=== PATIENT | male | born 1940 | race Caucasian/White ===

== ENCOUNTER 2017-10-11 16:14 | Observation (INO) | payer MEDICARE ==
--- NOTE | 2017-10-11 16:42 | ED ---
HPI Chest Pain - HPI Summary HPI Summary: A 77 y/o male accompanied by his daughter JAX presents to ED c/o chest pain reaching 7/10 in severity. In the ED room, the patient has a blood pressure of 118/72. As per triage, "Pt arrives via EMS for sharp bilateral chest pain since this morning. Pt states he thought it was indigestion but it hasn't gone away after TUMS. Pt states he has had some lightheadedness today, denies nausea, diaphoresis, SOB. Pt also had an episode of unresponsiveness per EMS where for a few seconds he did not respond to sternal rub or blink from facial movement. Pt looking off to right with eyes slightly rolled back and arms stretched out. Pt then suddenly became responsive and A & Ox4, showing no post-ictal signs". As per EMS, the patient has experiencing 9/10 CP. He thought it was originally ingestion so he took TUMS and moved on with his day by working on the deck. EMS was called by daughter and en route the patient had a episode where he stiffened up and his head/eyes turned right for about 30 seconds with unresponsiveness. After that episode, he relaxed and acted as if everything was normal. Negative NIH stroke scale. No Hx of seizures, cardiac issues, however he was in A-fib. According to the patient, he is experiencing chest pain that is radiating diffusely across his chest. He stated that he thought it was ingestion, however it never went away. PMHx of Cirrhosis (due to 60 years of heavy drinking), endoscope, esophageal balloon (had swallowing issue), LBBB, denies GA, CVA, seizure. Denies any stress test done for heart. He did see a deputy administrator a long time ago, but nothing was done. Takes several medications, on no blood thinners. Pt lives in [place], he is currently visiting. SHx of not heavy drinker, had one yesterday, no smoking. Had a TIPS procedure. - History of Current Complaint Chief Complaint: EDChestPainROMI Time Seen by Provider: 10/11/17 16:22 Hx Obtained From: Patient Onset/Duration: Started Hours Ago, Still Present Timing: Constant, Lasting Hours Initial Severity: Moderate Current Severity: Moderate Pain Intensity: 7 Pain Scale Used: 0-10 Numeric Chest Pain Location: Diffuse Chest Pain Radiates: No Aggravating Factor(s): Nothing Alleviating Factor(s): Nothing Associated Signs and Symptoms: Positive: Chest Pain. Negative: Fever - Allergy/Home Medications Allergies/Adverse Reactions: Allergies Allergy/AdvReac Type Severity Reaction Status Date / Time No Known Allergies Allergy Verified 10/11/17 16:32 Home Medications: Home Medications Aspirin EC TAB* [Ecotrin EC Low Dose 81 MG*] 81 mg PO DAILY 10/11/17 [History Confirmed 10/11/17] Furosemide TAB* [Lasix TAB*] 40 mg PO DAILY 10/11/17 [History Confirmed 10/11/17 ] Pantoprazole TAB (NF) [Protonix TAB (NF)] 40 mg PO DAILY 10/11/17 [History Confirmed 10/11/17] RiFAXimin* [Xifaxan*] 550 mg PO BID 10/11/17 [History Confirmed 10/11/17] Spironolactone TAB* [Aldactone TAB*] 100 mg PO DAILY 10/11/17 [History Confirmed 10/11/17] PMH/Surg Hx/FS Hx/Imm Hx Endocrine/Hematology History: Denies: Hx Diabetes Cardiovascular History: Reports: Other Cardiovascular Problems/Disorders - LBBB Denies: Hx Hypertension - Surgical History Surgery Procedure, Year, and Place: Endoscopy Infectious Disease History: No Infectious Disease History: Denies: Traveled Outside the [place] in Last 30 Days - Family History Known Family History: Positive: Cardiac Disease, Other - Angina - Social History Alcohol Use: Occasionally Alcohol Amount: hx etoh daily Substance Use Type: Reports: None Smoking Status (MU): Never Smoked Tobacco Review of Systems Negative: Fever Positive: Chest Pain All Other Systems Reviewed And Are Negative: Yes Physical Exam - Summary Physical Exam Summary: Appearance: Well appearing, no pain distress Skin: warm, dry, reflects adequate perfusion Head/face: normal Eyes: EOMI, YONG ENT: normal Neck: supple, non-tender Respiratory: CTA, breath sounds present Cardiovascular: RRR, pulses symmetrical Abdomen: non-tender, soft Bowel: present Musculoskeletal: normal, strength/ROM intact Neuro: normal, sensory motor intact, A&Ox3 GCS: 15 Triage Information Reviewed: Yes Vital Signs On Initial Exam: Initial Vitals Temp Pulse Resp BP Pulse Ox 98.3 F 65 16 118/72 98 10/11/17 16:21 10/11/17 16:21 10/11/17 16:21 10/11/17 16:21 10/11/17 16:21 Vital Signs Reviewed: Yes Diagnostics - Vital Signs Vital Signs Temp Pulse Resp BP Pulse Ox 10/11/17 16:34 84 21 136/71 98 10/11/17 16:32 6 10/11/17 16:25 80 118/72 99 10/11/17 16:21 98.3 F 65 16 118/72 98 - Laboratory Result Diagrams: 10/11/17 16:41 10/11/17 16:41 Lab Statement: Any lab studies that have been ordered have been reviewed, and results considered in the medical decision making process. - Radiology CXR Radiology Interpretation Completed By: Radiologist - Mild LEFT basilar atelectasis. ED PHYSICIAN REVIEWED THIS RADIOLOGY REPORT. - CT BRAIN CT CT Interpretation Completed By: Radiologist - No acute intracranial process evident. Involutional change and stigmata of chronic small vessel ischemic disease. ED PHYSICIAN REVIEWED THIS RADIOLOGY REPORT. - EKG 1630 Cardiac Rate: Tachycardia - 100 BPM EKG Rhythm: Atrial Fibrillation EKG Interpretation: LBBB Re-Evaluation - Re-Evaluation First Eval Re-Evaluation Time: 18:23 Comment: Reviewed results and labs with patient. Patient was advised that he will be admitted for observation and further treatment. Chest Pain Course/Dx - Course Course Of Treatment: A 77 y/o male accompanied by his daughter JAX presents to ED c/o chest pain reaching 7/10 in severity. In the ED room, the patient has a blood pressure of 118/72. A CXR revealed mild left basilar atelectasis. A Brain CT revealed no acute intracranial process evident. Involutional change and stigmata of chronic small vessel ischemic disease. An EKG revealed LBBB, atrial fibrillation and a rate of 100 BPM. In the ED course, the patient received Motrin and Tylenol. Patient care was discussed with hospitalist, Dr. Velazco, who accepts patient for admission. Patient will be admitted with a diagnosis of rule -out GA, chest pain, TIA and cirrhosis of the liver. Patient is agreeable with this plan. - Chest Pain Differential Diagnosis/HQI/PQRI: Acute GA, ACS, Angina, Chest Wall, Lower Respiratory Infection - Diagnoses Provider Diagnoses: TIA (transient ischemic attack), Cirrhosis of liver, Chest pain, rule out acute myocardial infarction - Provider Notifications Discussed Care Of Patient With: Mey Velazco Time Discussed With Above Provider: 19:14 Instructed by Provider To: Other - Accepts patient for admission. Discharge - Sign-Out/Discharge Documenting (check all that apply): Patient Departure - ADMIT - Discharge Plan Condition: Stable Disposition: ADMITTED TO [facility] Referrals: No Primary Care Phys,NOPCP [Primary Care Provider] - - Billing Disposition and Condition Condition: STABLE Disposition: Admitted to [facility] - Attestation Statements Document Initiated by Scribe: Yes Documenting Scribe: Paramjit Freeman Provider For Whom Scribe is Documenting (Include Credential): Juan C Sandhu Scribe Attestation: Paramjit Mccormick, scribed for Juan C Mcculloughpurvi on 10/11/17 at 1941. Scribe Documentation Reviewed: Yes Provider Attestation: The documentation as recorded by the scribeParamjit accurately reflects the service I personally performed and the decisions made by Juan C martinez NIH Scale - NIH Scale Level of Consciousness: Alert/Keenly Responsive Ask Patient the Month and His/Her Age: Both Correct Ask Pt to Open/Close Eyes and Picu Nurse/Release Non-Paretic Hand: Both Correctly Best Gaze (Only Horizontal Eye Movement): Normal Visual Field Testing: No Visual Loss Facial Paresis-Pt to Smile & Close Eyes or Grimace Symmetry: Normal/Symmetrical Motor Function - Right Arm: No Drift-Holds 10 Seconds Motor Function - Left Arm: No Drift-Holds 10 Seconds Motor Function - Right Leg: No Drift-Holds 10 Seconds Motor Function - Left Leg: No Drift-Holds 10 Seconds Limb Ataxia-Must be out of Proportion to Weakness Present: Absent Sensory (Use Pinprick to Test Arms/Legs/Trunk/Face): Normal Best Language (Describe Picture, Name Items): No Aphasia Dysarthria (Read Several Words): Normal Extinction and Inattention: No Abnormality Total Score: 0
[2017-10-11 17:13] LABS: Hematocrit 39 % (42-52); Hemoglobin 13.7 g/dl (14.0-18.0); Mean Corpuscular HGB Conc 35 g/dl (31-36); Mean Corpuscular Hemoglobin 34 pg (27-31); Mean Corpuscular Volume 96 fL (80-94); Platelet Count 72 10^3/ul (150-450); Red Blood Count 4.04 10^6/ul (4.00-5.40); Red Cell Distribution Width 13 % (10.5-15); White Blood Count 4.5 10^3/ul (3.5-10.8)
[2017-10-11 17:18] LABS: INR 1.21 (0.77-1.02)
--- NOTE | 2017-10-11 17:24 | RAD ---
Indication: Chest pain. Traumatic ankle injury. Fall. Comparison: No relevant prior exams available on the [facility] PACS for comparison. Technique: Upright AP 1652 hours Report: Mild LEFT basilar subsegmental atelectasis. Negative for pleural effusion or pneumothorax. Upper normal heart size. Unremarkable central pulmonary vasculature and mediastinal contours accounting for rightward rotation. No fractures visualized. IMPRESSION: #. Mild LEFT basilar atelectasis.
[2017-10-11 17:26] LABS: EGFR Non-African American 57.6 (>60)
[2017-10-11] MEDS ORDERED: Acetaminophen TAB* 325 MG PO ONE (17:27)
--- NOTE | 2017-10-11 17:30 | RAD ---
Indication: Unresponsive episode. Comparison: No relevant prior exams available on the [facility] PACS for comparison. Technique: Noncontrast CT vertex of skull through foramen magnum. Report: Mild prominence of the cerebral sulci and cerebellar fissures reflecting atrophy. Unremarkable ventricles and basal cisterns. Negative for metz matter white matter obscuration, intra or extra-axial hemorrhage, or mass effect. Decreased density in the periventricular and subcortical white matter while non-specific is most likely due to chronic microangiopathy. No suspicious abnormality at the orbital contents. Unremarkable calvarium and skull base. Clear partially visualized paranasal sinuses and mastoid air spaces. Negative for scalp hematoma. IMPRESSION: #. No acute intracranial process evident. #. Involutional change and stigmata of chronic small vessel ischemic disease.
[2017-10-11] MEDS ORDERED: Ibuprofen TAB* 400 MG ONE (17:32)
[2017-10-11] MEDS ORDERED: Ibuprofen TAB* 400 MG PO ONE (17:33)
[2017-10-11 17:36] LABS: ABS Basophils 0 10^3/ul (0-0.2); ABS Eosinophils 0 10^3/ul (0-0.6); ABS Lymphocytes 0.1 10^3/ul (1.0-4.8); ABS Monocytes 0.4 10^3/ul (0-0.8); ABS Nucleated RBC 0 10^3/ul; Eosinophil % 0.3 % (0-6); Lymphocyte % 3.3 % (25-47); Nucleated Red Blood Cells % 0.1
[2017-10-11] MEDS ORDERED: Magnesium Sulfate 2 GM IV* 2 GM/50 ML BAG IVPB ONE (19:27)
[2017-10-11] MEDS ORDERED: NS 0.9% 1000 ML* 1,000 ML IV ONE (20:23)
[2017-10-11] MEDS ORDERED: Acetaminophen TAB* 325 MG PO PRN (20:24)
[2017-10-11] MEDS ORDERED: Ondansetron INJ* 2 MG/ML VIAL IV PRN (20:24)
[2017-10-11] MEDS ORDERED: Al Hydrox/Mg Hydrox/Simet LIQ* 30 ML UDC PO PRN (20:24)
[2017-10-11] MEDS ORDERED: Aspirin TAB* 325 MG PO ONE (20:42)
[2017-10-11] MEDS ORDERED: Iodixanol* (CONTRAST) 320 MG/ML 100 ML SDV IV ONE (20:49)
--- NOTE | 2017-10-11 21:21 | RAD ---
EXAM: CT Angiography Head With Intravenous Contrast CLINICAL HISTORY: 77 years old, male; Signs and symptoms; Syncope and collapse TECHNIQUE: Axial computed tomographic angiography images of the head with intravenous contrast using CT angiography protocol. All CT scans at this facility use at least one of these dose optimization techniques: automated exposure control; mA and/or kV adjustment per patient size (includes targeted exams where dose is matched to clinical indication); or iterative reconstruction. 3D and MIP reconstructed images were created and reviewed. Coronal and sagittal reformatted images were created and reviewed. CONTRAST: 80 mL of VISIPAQUE 320 administered intravenously. COMPARISON: No relevant prior studies available. FINDINGS: Right internal carotid artery: Calcification involving the right carotid siphon without significant stenosis. No aneurysm. Right anterior cerebral artery: Unremarkable. No occlusion or significant stenosis. No aneurysm. Right middle cerebral artery: Unremarkable. No occlusion or significant stenosis. No aneurysm. Right posterior cerebral artery: Unremarkable. No occlusion or significant stenosis. No aneurysm. Right vertebral artery: Mild calcification involving the right vertebral artery without definite significant stenosis. Left internal carotid artery: Calcification involving the left carotid siphon without significant stenosis. No aneurysm. Left anterior cerebral artery: Unremarkable. No occlusion or significant stenosis. No aneurysm. Left middle cerebral artery: Unremarkable. No occlusion or significant stenosis. No aneurysm. Left posterior cerebral artery: Unremarkable. No occlusion or significant stenosis. No aneurysm. Left vertebral artery: Left vertebral artery is dominant. Mild calcification involving the left vertebral artery without definite significant stenosis. Basilar artery: Unremarkable. No occlusion or significant stenosis. No aneurysm. IMPRESSION: No hemodynamically significant stenosis or large vessel occlusion. EXAM: CT Angiography Neck With Intravenous Contrast EXAM DATE/TIME: 10/11/2017 8:51 PM CLINICAL HISTORY: 77 years old, male; Signs and symptoms; Syncope and collapse TECHNIQUE: Axial computed tomographic angiography images of the neck with intravenous contrast using CT angiography protocol. All CT scans at this facility use at least one of these dose optimization techniques: automated exposure control; mA and/or kV adjustment per patient size (includes targeted exams where dose is matched to clinical indication); or iterative reconstruction. 3D and MIP reconstructed images were created and reviewed. Coronal and sagittal reformatted images were created and reviewed. CONTRAST: 80 mL of VISIPAQUE 320 administered intravenously. 80 mL of VISIPAQUE 320 administered intravenously. COMPARISON: No relevant prior studies available. FINDINGS: VASCULATURE: Right common carotid artery: Unremarkable. No significant stenosis. No dissection or occlusion. Right internal carotid artery: Unremarkable. Extracranial segment is patent with no significant stenosis. No dissection or occlusion. Right external carotid artery: Unremarkable. No occlusion. Right vertebral artery: Unremarkable. No significant stenosis. No dissection or occlusion. Left common carotid artery: Unremarkable. No significant stenosis. No dissection or occlusion. Left internal carotid artery: Unremarkable. Extracranial segment is patent with no significant stenosis. No dissection or occlusion. Left external carotid artery: Unremarkable. No occlusion. Left vertebral artery: Left vertebral artery is dominant. No significant stenosis. No dissection or occlusion. NECK: Bones/joints: There are degenerative changes involving the spine. No acute fracture. No dislocation. Soft tissues: Unremarkable as visualized. No mass. CAROTID STENOSIS REFERENCE USING NASCET CRITERIA: % ICA stenosis = (1 - narrowest ICA diameter/diameter of distal cervical ICA) x 100. Mild - <50% stenosis. Moderate - 50-69% stenosis. Severe - 70-94% stenosis. Near occlusion - 95-99% stenosis. Occluded - 100% stenosis. IMPRESSION: No hemodynamically significant stenosis.
--- NOTE | 2017-10-11 21:40 | RAD ---
EXAM: MR Head Without Intravenous Contrast EXAM DATE/TIME: 10/11/2017 9:21 PM CLINICAL HISTORY: 77 years old, male; Signs and symptoms; Altered mental status/memory loss; Patient HX: Pt had an episode of unresponsiveness per ems for a few seconds earlier today. Did not respond to sternal rub or blink from facial movement. TECHNIQUE: Magnetic resonance images of the head/brain without intravenous contrast in multiple planes. COMPARISON: CTA HD/NK CTA HEAD/NECK 10/11/2017 8:48 PM FINDINGS: Ventricular and subarachnoid spaces are normal for age. Major vascular flow voids at the skull base are preserved. No extra-axial fluid collection. No midline shift or mass effect. Mild nonspecific gliosis involving the supratentorial white matter is likely secondary to chronic microvascular ischemia. No diffusion restriction. Minimal paranasal sinus disease. Trace right mastoid effusion. IMPRESSION: No acute intracranial abnormality.
[2017-10-11] MEDS: Heparin VIAL(*) 5000 UNITS/ML VIAL (FIVE THOUSAND) SUBCUT SCH (22:19)
[2017-10-11] MEDS: RiFAXimin* 550 MG TAB PO SCH (22:22)
--- NOTE | 2017-10-11 23:13 | HP ---
CC: Dr. Mays, [place], [place] HISTORY AND PHYSICAL: DATE OF ADMISSION: 10/11/17 TIME OF EVALUATION: 1999. PRIMARY CARE PHYSICIAN: Dottie Crowe [place], [place] CHIEF COMPLAINT: Chest pain. HISTORY OF PRESENT ILLNESS: This is a 77-year-old male with a past medical history of hepatic encephalopathy, GERD who presented to the emergency room with persistent chest pain. The patient states immediately upon waking up this morning, he had chest pain across his chest. He went to go to drink coffee which he normally does not drink and the chest pain never improved. He thought it was indigestion. He did not eat or drink very much today. He had a headache all day behind his eyes. No blurry vision. No shortness of breath. He finally called the EMS for further evaluation. In the EMS, the patient states he was diaphoretic, he also had a period of unresponsiveness. He states to EMS that he turned his head to the side and he had a staring episode for about 30 seconds. It did not appear that he seemed to be out of it afterward or any postictal period. No shaking or tremors. The patient is visiting from [place] for the week, staying with his daughter. She states that he always sits there, she thinks he is resting, but his eyes are open and she thought that he was sleeping, but it is possible that maybe he was having these staring spells that he did in the EMS. He also states he had a significant lightheaded episode while he was lying in the couch, he was also dizzy and very nauseated. He does get dizzy spells on occasion, but not at this significant. He denied any weakness. No shortness of breath, no recent illness. He was seeing a pretzel twister down in [place], but they said he no longer needed to follow up with them. He declined a stress test from them many years ago as he has heard people dying from having a stress test. The patient states he has been gaining weight. No lower extremity swelling. Also of note, the patient was working on his daughter's deck yesterday, was very active, and he had 3 drinks, which he normally has not been doing with his history as a reward for himself for working so hard out on the deck. Otherwise, review of systems is negative. He states that the chest pain has subsided, but now moved to his lower chest. Otherwise, the patient in the emergency room was given Motrin and referred to the hospitalist service for further evaluation. PAST MEDICAL HISTORY: 1. The patient states he does have history of left bundle-branch block. 2. History of hepatic encephalopathy with cirrhosis. 3. History of alcohol abuse. 4. GERD. 5. History of esophageal stricture, status post balloon dilatation. 6. History of TIPS procedure. 7. History of ventral and umbilical hernia repair. MEDICATIONS: 1. Aspirin 81 mg p.o. daily. 2. Spironolactone 100 mg daily. 3. Lasix 40 mg daily. 4. Rifaximin 550 mg p.o. b.i.d. 5. Pantoprazole 40 mg p.o. daily. ALLERGIES: No known drug allergies. FAMILY HISTORY: Mother is alive at age 97. Father at age 62, appears from an OR. SOCIAL HISTORY: As mentioned, the patient is from [place], [place]. He lives with his girlfriend. He is independent of his ADLs. He does occasionally smoke a cigar. He does not drink daily, but does have a history of alcohol abuse. He limits his alcohol intake. He states 3 drinks yesterday was out of the ordinary for him in the clinical situation of working hard on daughter's deck. He is currently staying with his daughter. He is original from [place]. His healthcare proxy is his daughter, Sandrita Meier. Code status, full code. REVIEW OF SYSTEMS: A 14-point review of systems as mentioned in HPI, otherwise negative. PHYSICAL EXAMINATION GENERAL: No acute distress, resting comfortably with his daughter, sister, and grandson at the bedside. VITAL SIGNS: Temp 98.3, pulse rate 68, respiratory rate 17, oxygen saturation 97 % on room air, blood pressure 120/68. HEENT: Head, normocephalic. Pupils equal and reactive, anicteric. Oropharynx : Mucous membranes are moist. NECK: Supple, no adenopathy. RESPIRATORY: Diminished breath sounds. No wheezes, rhonchi, or rales. CARDIAC: Regular rate and rhythm. Systolic murmur most prominent at the left sternal base. ABDOMEN: Positive bowel sounds. Soft, nontender, nondistended. EXTREMITIES: Trace pretibial edema, +1 DPs. NEUROLOGIC: Alert and oriented x3. No gross focal neurologic deficits. Negative pronator drift. DIAGNOSTIC STUDIES/LAB DATA: White count 4.5, hemoglobin 13.7, hematocrit 39, platelets 72. INR is 1.21. Sodium 137, potassium 4.1, chloride 106, bicarb 23 , BUN 14, creatinine 1.22, glucose 120, mag is 1.7, total bili is 1.35. Troponin is 0 x2. Radiographic Data: EKG shows atrial fibrillation with a rate of 100 with a left bundle-branch block. A chest x-ray shows mild left basilar atelectasis. Head CT: No acute intracranial process evident, involutional changes, stigmata of chronic small vessel ischemic disease. ASSESSMENT: This is a 77-year-old male with past medical history of hepatic encephalopathy, cirrhosis with a known left-bundle branch block who presents to the emergency room with chest pain who had an unresponsive episode in EMS. 1. Chest pain. Assessment: My suspicion is this is musculoskeletal in the setting of working in his daughter's deck all day yesterday. He did present with atrial fibrillation on EKG, which now appears on telemetry that he is in normal sinus. We will get another EKG to look at this. He denies any history of atrial fibrillation. He also per him refused stress test in the past. Plan : Discussed workup with troponin trend. We will obtain an echocardiogram. If there are any concerning findings from there, then he may need a stress test, but he has capacity to refuse it if he is not interested. We will continue him on an aspirin. 2. Atrial fibrillation. Assessment: The patient's presenting EKG shows atrial fibrillation per the patient. He has no known history of this. It appears that he is now in sinus rhythm. Plan: We will repeat an EKG now. We will check an echocardiogram. I suspect maybe the 3 drinks put him into atrial fibrillation. He may be in paroxysmal atrial fibrillation with his drinking history. No indication for anticoagulation at this time. His mag was also low. We will replete that. 3. Unresponsive episode. Assessment: The patient with this unresponsive episode in EMS and possibly several more episodes at home while he was supposedly having his brief nap with his eyes open. It is possible this was a seizure-like episode or transient ischemic attack. He was also having dizziness and vertigo even with lying flat. Plan: We will check a CTA of the head and neck, MRI, and EEG. We will change him to a full aspirin for now. Neuro checks and seizure precautions. Consider Neurology evaluation. 4. Chronic medial problems: History of hepatic encephalopathy and cirrhosis. We will resume his spironolactone, Lasix, and rifaximin in the morning. 5. History of esophageal stricture: Continue his Protonix in the morning as well. 6. FEN: Place the patient on a heart-healthy diet. 7. DVT prophylaxes: The patient scores moderate risk, place him on heparin subcu t.i.d. 8. Code status: Full code. PATIENT TIME: Greater than 60 minutes was spent doing the history and physical , more than half the time spent in direct patient contact. [id number]/CPS #: [id number]
[2017-10-12] MEDS ORDERED: Ketorolac INJ* 15 MG/ML 1 ML VIAL IV PUSH ONE (05:17)
[2017-10-12] MEDS ORDERED: Ketorolac INJ* 15 MG/ML 1 ML VIAL ONE (05:23)
[2017-10-12] MEDS: Heparin VIAL(*) 5000 UNITS/ML VIAL (FIVE THOUSAND) SUBCUT SCH ×3 (05:25→19:51)
[2017-10-12 05:42] LABS: ABS Basophils 0 10^3/ul (0-0.2); ABS Eosinophils 0 10^3/ul (0-0.6); ABS Lymphocytes 0.2 10^3/ul (1.0-4.8); ABS Monocytes 0.6 10^3/ul (0-0.8); ABS Neutrophils 3.6 10^3/ul (1.5-7.7); ABS Nucleated RBC 0 10^3/ul; Eosinophil % 0.9 % (0-6); Hematocrit 39 % (42-52); Hemoglobin 13.6 g/dl (14.0-18.0); Lymphocyte % 5.1 % (25-47); Mean Corpuscular HGB Conc 35 g/dl (31-36); Mean Corpuscular Hemoglobin 34 pg (27-31); Mean Corpuscular Volume 96 fL (80-94); Mean Platelet Volume 8.1 um3 (7.4-10.4); Nucleated Red Blood Cells % 0.1; Platelet Count 69 10^3/ul (150-450); Red Blood Count 4.02 10^6/ul (4.00-5.40); Red Cell Distribution Width 13 % (10.5-15); White Blood Count 4.6 10^3/ul (3.5-10.8)
[2017-10-12 05:51] LABS: EGFR Non-African American 67.7 (>60)
[2017-10-12] MEDS: Furosemide TAB* 40 MG PO SCH (08:47)
[2017-10-12] MEDS: Aspirin TAB* 325 MG PO SCH (08:48)
[2017-10-12] MEDS: Omeprazole CAP* 20 MG PO SCH (08:48)
[2017-10-12] MEDS: RiFAXimin* 550 MG TAB PO SCH ×2 (08:48→19:51)
[2017-10-12] MEDS: Spironolactone TAB* 25 MG PO SCH (08:48)
--- NOTE | 2017-10-12 08:55 | ECHO ---
Patient: SANIYA HARRIS [facility] Rec#: [id number] : 1940 Date: 10/12/2017 Age: 77y Height: 173 cm / 68.1 in Weight: 87.09 kg / 191.9 lbs Sex: M BSA: 2.01 Room#: [facility] Admit Date#: 10/11/2017 Type: Inpatient Referring: Mey Velazco Reading: Al Leos DO Shuttle Buggy Operator: Greta [facility]AL[facility]an[facility]ch[facility] Indication: Syncope, chest pain BP: 135/60 HR: 84 Rhythm: A-Fib Findings History: LBBB, systolic murmur, ETOH abuse in past, hepatic encephalopathy. Technical Comments: The study quality is fair. Completed at 0830. Left Ventricle: The left ventricular chamber size is normal. There is no left ventricular hypertrophy. There is a prominent septal knuckle. Global left ventricular wall motion and contractility are within normal limits. There is normal left ventricular systolic function. The estimated ejection fraction is greater than 65%. There is a left ventricular septal wall motion abnormality observed, possibly due to the presence of a left bundle branch block. The assessment of diastolic function is non-diagnostic. Left Atrium: The left atrium is mildly dilated. Right Ventricle: The right ventricular chamber size and systolic function are within normal limits. Right Atrium: The right atrium is mildly dilated. Aortic Valve: The aortic valve is trileaflet. The aortic valve leaflets are mildly thickened. There is evidence of aortic sclerosis without stenosis. There is mild aortic regurgitation. There is no evidence of aortic stenosis. Mitral Valve: There is mitral annular calcification. The mitral valve leaflets are mildly thickened. There is a trace of mitral regurgitation. There is no evidence of mitral stenosis. Tricuspid Valve: The tricuspid valve leaflets are normal. There is trace tricuspid regurgitation. Unable to estimate the right ventricular systolic pressure. There is no tricuspid stenosis. Pulmonic Valve: The pulmonic valve appears normal. There is a trace pulmonic regurgitation. There is no pulmonic stenosis. Pericardium: There is no significant pericardial effusion. Aorta: There is no dilatation of the ascending aorta. There is mild dilatation of the aortic arch. The aortic root is normal in size. Pulmonary Artery: The main pulmonary artery is not well visualized. Venous: The inferior vena cava is dilated. There is a greater than 50% respiratory change in the inferior vena cava dimension. Conclusions The left ventricular chamber size is normal. There is no left ventricular hypertrophy. There is a prominent septal knuckle. Global left ventricular wall motion and contractility are within normal limits. There is normal left ventricular systolic function. The estimated ejection fraction is 65-70% The left atrium is mildly dilated. The right ventricular chamber size and systolic function are within normal limits. There is evidence of aortic sclerosis without stenosis. Unable to estimate the right ventricular systolic pressure. None prior for comparison at time of interpretation Measurements Name Value Normal Range RVIDd (AP) 2D 3.1 cm (0.9 - 2.6) RAd ISD 4CH 5.2 cm (3.4 - 4.9) RA (A4C)W 4.2 cm (2.9 - 4.6) IVSd (2D) 0.9 cm (0.6 - 1) LVPWd (2D) 0.9 cm (0.6 - 1) LVIDd (2D) 3.8 cm (3.6 - 5.4) LVIDs (2D) 2.5 cm - LV FS (2D) 34 % (25 - 45) Aortic Annulus 2 cm (1.4 - 2.6) Ao root diameter (2D) 3 cm (2.1 - 3.5) Ascending Ao 3.2 cm (2.1 - 3.4) Aortic arch 3.8 cm (1.8 - 3.4) LA dimension (AP) 2D 4 cm (2.3 - 3.8) LAd ISD 4CH 6.5 cm (2.9 - 5.3) LA ISD 4CH W 4.3 cm (2.5 - 4.5) Name Value Normal Range LA ESV BP (A/L) index 30.6 ml/m2 - Name Value Normal Range MV E-wave Vmax 0.6 m/sec - MV deceleration time 151 msec - MV A-wave Vmax 0.9 m/sec - MV E:A ratio 0.7 ratio - LV septal e' Vmax 0.07 m/sec - LV lateral e' Vmax 0.08 m/sec - LV E:e' septal ratio 8.57 ratio - LV E:e' lateral ratio 7.5 ratio - Name Value Normal Range AV Vmax 2.1 m/sec - AV VTI 43 cm - AV peak gradient 17 mmHg - AV mean gradient 10 mmHg - LVOT Vmax 1.4 m/sec - LVOT VTI 28.1 cm - LVOT peak gradient 8 mmHg - LVOT mean gradient 5 mmHg - DC Vmax 1.2 m/sec - Name Value Normal Range IVC diameter 2.2 cm - Name Value Normal Range PV Vmax 1.6 m/sec - PV peak gradient 10 mmHg -
[2017-10-12] MEDS ORDERED: Aspirin EC TAB* 81 MG TAB.EC PO SCH (09:00)
[2017-10-12] MEDS ORDERED: Iodixanol* (CONTRAST) 320 MG/ML 100 ML SDV IV ONE (17:14)
--- NOTE | 2017-10-12 17:34 | PN ---
Subjective Date of Service: 10/12/17 Interval History: Pt seen and examined. Meds and labs reviewed. CC: Continuos CP ROS: Denied COBURN/dizziness, F/C, N/V, SOB, increased cough, sputum production, abd pain, diarrhea, constipation, dysuria, myalgias, arthralgias, throat pain, and new skin lesions. The rest of the 14 point ROS are unremarkable. PHYSICAL EXAM: GEN APPEARANCE: Awake, not in acute distress HEENT: NC/AT, PERRLA, moist oral mucosa, (-) throat erythema NECK: Soft, supple, (-) cervical LAD, (-)JVD HEART: S1S2 WNL, RRR, No MRG CHEST: CTA, BL, GAE, No W/R/R ABD: Soft, ND/NT, NABS 4x Q EXT: No C/C/BLLE+1 SKIN: Warm to touch PSYCH: No active psychosis, hallucinations, depression, SI/HI Objective Active Medications: Acetaminophen (Tylenol Tab*) 650 mg PO Q4H PRN PRN Reason: FEVER/PAIN Al Hydrox/Mg Hydrox/Simethicone (Maalox Plus*) 30 ml PO Q6H PRN PRN Reason: INDIGESTION Aspirin (Aspirin Tab*) 325 mg PO DAILY [facility] Last Admin: 10/12/17 08:48 Dose: 325 mg Furosemide (Lasix Tab*) 40 mg PO DAILY [facility] Last Admin: 10/12/17 08:47 Dose: 40 mg Heparin Sodium (Porcine) (Heparin Vial(*)) 5,000 units SUBCUT Q12H [facility] Omeprazole (Prilosec Cap*) 20 mg PO DAILY@0730 [facility] Last Admin: 10/12/17 08:48 Dose: 20 mg Ondansetron HCl (Zofran Inj*) 4 mg IV Q4H PRN PRN Reason: NAUSEA/VOMITING Rifaximin (Xifaxan*) 550 mg PO BID [facility] Last Admin: 10/12/17 08:48 Dose: 550 mg Spironolactone (Aldactone Tab*) 100 mg PO DAILY [facility] Last Admin: 10/12/17 08:48 Dose: 100 mg Vital Signs - 8 hr 10/12/17 10/12/17 11:55 16:24 Temperature 98.4 F 99.9 F Pulse Rate 80 86 Respiratory 16 20 Rate Blood Pressure 133/56 146/63 (mmHg) O2 Sat by Pulse 99 100 Oximetry Oxygen Devices in Use Now: None Result Diagrams: 10/12/17 05:27 10/12/17 05:27 Assess/Plan/Problems-Billing Assessment: - Patient Problems (1) Chest pain Current Visit: Yes Status: Acute Code(s): R07.9 - CHEST PAIN, UNSPECIFIED SNOMED Code(s): 04923443 Comment: -Mentions that CP is pleuritic but right below his pectoral area---will order CTA of chest to R/O; especially with an equivocal history of syncope -Troponins (-)x3 -Likely musculoskeletal if CTA is negative -2D echo does not show any wall motion abn with preserved EF 65-70% -For stress test in AM given known history of A fib with LBBB, old (2) Atrial fibrillation Current Visit: Yes Status: Acute Code(s): I48.91 - UNSPECIFIED ATRIAL FIBRILLATION SNOMED Code(s): 14332745 Comment: -Likely Paroxysmal given repeat EKG is in NSR today -Will defer with pts PCP to discuss risks and benefits given pt has multiple medical conditions and is cirrhotic. 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
[2017-10-12] MEDS ORDERED: Heparin VIAL(*) 5000 UNITS/ML VIAL (FIVE THOUSAND) SUBCUT SCH (18:00)
--- NOTE | 2017-10-12 19:19 | RAD ---
EXAM: CT Angiography Chest With Intravenous Contrast CLINICAL HISTORY: 77 years old, male; Pain; Chest pain; Additional info: Pleuritic cp TECHNIQUE: Axial computed tomographic angiography images of the chest with intravenous contrast using pulmonary embolism protocol. All CT scans at this facility use at least one of these dose optimization techniques: automated exposure control; mA and/or kV adjustment per patient size (includes targeted exams where dose is matched to clinical indication); or iterative reconstruction. MIP reconstructed images were created and reviewed. Coronal and sagittal reformatted images were created and reviewed. CONTRAST: 82 mL of VISIPAQUE 320 administered intravenously. COMPARISON: OT - CXR PORTAP CHEST AP PORTABLE 10/11/2017 4:51 PM FINDINGS: Pulmonary arteries: No visible acute pulmonary embolism. Aorta: There are atherosclerotic aortic and coronary artery calcifications. No thoracic aortic aneurysm. Lungs: Unremarkable. No mass. No consolidation. Pleural space: There is bibasilar atelectatic change or scarring but the lungs and pleural spaces appear otherwise clear. No significant effusion. No pneumothorax. Heart: See above. Bones/joints: There is diffuse osteopenia and there are degenerative changes of the spine. There is moderate thoracic kyphosis No acute fracture. No dislocation. Soft tissues: There is significant bilateral gynecomastia. Lymph nodes: Unremarkable. No enlarged lymph nodes. Spleen: There is splenomegaly. Tubes, lines and devices: A TIPS shunt is present. IMPRESSION: 1. There is bibasilar atelectatic change or scarring but the lungs and pleural spaces appear otherwise clear. 2. No visible acute pulmonary embolism.
[2017-10-12] MEDS ORDERED: oxyCODONE/Acetamin 5/325 MG* TAB PO PRN (19:30)
[2017-10-12] MEDS ORDERED: Ibuprofen TAB* 600 MG PO PRN (19:31)
--- NOTE | 2017-10-12 20:43 | EEG ---
ELECTROENCEPHALOGRAPHY: DATE OF STUDY: 10/12/17 LOCATION: He is an outpatient in room 448. REFERRING PHYSICIAN: Dr. Velazco. CLINICAL PROBLEM: Episodes of staring and unresponsiveness. Rule out seizure disorder. MEDICATIONS: Include: 1. Lasix. 2. Zofran. 3. Heparin. 4. Aldactone. 5. Xifaxan. 6. Aspirin. REPORT: This 16-channel EEG is remarkable for background rhythms consisting of a central slowing and bitemporal theta. The patient is clinically asleep. Vertex is more prominent at times and parasagittal sleep spindles are noted. There is occasional movement artifact. The patient wakes near the end of the tracing with normal background rhythms consisting of a 9 cycle per second alpha rhythm in the posterior derivations and bifrontal beta rhythms. The patient drowses again at the end of the tracing. There are no focal, lateralized, or epileptiform abnormalities. CLINICAL IMPRESSION: Normal asleep and briefly awake EEG. [id number]/[facility] #: [id number] [facility]
[2017-10-13 05:38] LABS: ABS Basophils 0 10^3/ul (0-0.2); ABS Eosinophils 0 10^3/ul (0-0.6); ABS Lymphocytes 0.3 10^3/ul (1.0-4.8); ABS Monocytes 0.9 10^3/ul (0-0.8); ABS Neutrophils 5.6 10^3/ul (1.5-7.7); ABS Nucleated RBC 0 10^3/ul; Eosinophil % 0.1 % (0-6); Hematocrit 39 % (42-52); Hemoglobin 13.7 g/dl (14.0-18.0); Lymphocyte % 3.7 % (25-47); Mean Corpuscular HGB Conc 35 g/dl (31-36); Mean Corpuscular Hemoglobin 34 pg (27-31); Mean Corpuscular Volume 97 fL (80-94); Mean Platelet Volume 8.6 um3 (7.4-10.4); Nucleated Red Blood Cells % 0; Platelet Count 66 10^3/ul (150-450); Red Blood Count 4.07 10^6/ul (4.00-5.40); Red Cell Distribution Width 13 % (10.5-15); White Blood Count 6.8 10^3/ul (3.5-10.8)
[2017-10-13 05:52] LABS: INR 1.33 (0.77-1.02)
[2017-10-13 05:58] LABS: EGFR Non-African American 64.2 (>60)
[2017-10-13] MEDS ORDERED: Sodium Phosphate INJ* 15 MMOLE in NS 0.9% 250 ML* 250 ML IVPB ONE (09:13)
[2017-10-13] MEDS: Omeprazole CAP* 20 MG PO SCH (10:40)
[2017-10-13] MEDS: RiFAXimin* 550 MG TAB PO SCH (10:40)
[2017-10-13] MEDS: Aspirin TAB* 325 MG PO SCH (10:40)
[2017-10-13] MEDS: Spironolactone TAB* 25 MG PO SCH (10:40)
[2017-10-13] MEDS: Furosemide TAB* 40 MG PO SCH (10:40)
[2017-10-13] MEDS: Heparin VIAL(*) 5000 UNITS/ML VIAL (FIVE THOUSAND) SUBCUT SCH (10:41)
--- NOTE | 2017-10-13 10:51 | RAD ---
INDICATION: Chest pain COMPARISON: None TECHNIQUE: A single day SPECT protocol was utilized. Rest images were acquired following the intravenous injection of 10.3 millicuries of technetium 99m tetrofosmin. Pharmacologic stress images were acquired following the intravenous administration of 25.8 millicuries of technetium 99m tetrofosmin. FINDINGS: There are no evidence defects of the stress-induced or fixed nature. The polar plot images demonstrate a tiny focus of ischemia in the inferior wall to apex but this is not confirmed on the tomographic images. There are minor limitations due to lack of CT attenuation correction because of limited arm mobility. The cardiac chamber size is normal. There are no wall motion abnormalities. The ejection fraction is calculated at 69 percent during stress. IMPRESSION: NO DEFINITIVE DEFECTS OF A STRESS-INDUCED OR FIXED NATURE (SEE ABOVE) ASSESSMENT: LOW-RISK Based on imaging criteria from ACC/AHA 2002 Guideline Update for the Management of Patients With Chronic Stable Angina Table 23. Noninvasive Risk Stratification.
[2017-10-13] MEDS ORDERED: Regadenoson* 0.4 MG/5 ML SYRINGE ONE (12:31)
[2017-10-13 16:24] VITALS: BP 141/53
--- NOTE | 2017-10-14 11:40 | DS ---
CC: Dr. Mey Velazco; Dr. Juan C Sandhu; Dr. Mays in [place], [place] * DISCHARGE SUMMARY: DATE OF ADMISSION: 10/11/17 DATE OF DISCHARGE: 10/13/17 DISCHARGE DIAGNOSES: As follows: 1. Chest pain, likely musculoskeletal, negative stress test and negative for PE with CTA of chest. 2. Atrial fibrillation. 3. Question of loss of consciousness, unremarkable MRI and CTA of head and neck. 4. 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 DISCHARGE MEDICATIONS: As follows: 1. Tylenol 650 mg p.o. q.6 p.r.n. 2. Lasix 40 mg p.o. daily. 3. Pantoprazole 40 mg p.o. daily. 4. Xifaxan 550 mg p.o. b.i.d. 5. Spironolactone 100 mg p.o. daily. 6. Aspirin 81 mg p.o. daily. 7. Lactulose 20 g p.o. q.6 p.r.n. only when patient is confused or when sleep wake cycle reversal is evident. 8. Oxycodone 5 mg p.o. q.8 p.r.n. 12 tabs dispensed with 0 refills. HISTORY OF PRESENT ILLNESS/HOSPITAL COURSE: The patient is a 77-year-old gentleman with history of Laennec's cirrhosis, status post TIPS procedure causing increased risk of hepatic encephalopathy, GERD, and esophageal stricture, status post balloon dilatation, who presented to our facility on 10/11/17 from [place], [place], where he currently resides and currently in town for a trip with family visiting his daughter. He mentioned that he had headache all day right behind his eyes with no blurry visions and shortness of breath and EMS was then called, who then stated that he was diaphoretic and there was a period of unresponsiveness for possibly around 30 seconds, although himself is unclear whether he was perspired and not responding to their voice or that he truly did pass out. During his hospitalization stay, he had CTA of his head and neck, which shows no hemodynamically significant stenosis or large vessel and an MRI of his brain done on 10/11/17, which showed no acute intracranial abnormality. He also complained of some pleuritic chest pain and has been ruled out for pulmonary embolism, especially given question of syncope with CT angio that was negative for any clots. Although it does reveal some bibasilar atelectatic change or scarring, but the lungs and pleural spaces appear otherwise clear. Therefore he was given a prescription for incentive spirometry prior to his discharge. He also had cardiac stress test, which was otherwise read as low risk for actionable coronary artery disease. During his evaluation, MELD score is found to be 16 and his total bilirubin was above 4, which is slightly above his normal baseline of bilirubin of 3.5 and MELD score of about 11 or 12 previously. He, therefore, was advised to follow up with his hot pond operator to see whether he can began to be evaluated for transplant listing in [place] and hence we will defer. The patient had been advised to followup and/or call his PCP within 3 days post discharge to schedule an outpatient appointment and to follow up with his hot pond operator, GI physician to recheck his MELD score. He was advised that his last calculated MELD score prior to his discharge in our institution is 16. He was advised to keep copies of his workup for his records and especially helpful if a decision for possible transplant listing is in order and hence we will defer with his GI physician. He was advised to call his PCP first if he needs more oxycodone as needed for pain. He was advised that too much opioids can further increased his risk of encephalopathy, hence he was given on an as- needed dose of lactulose he can use if it becomes more confused or sleeping more during the days and awake at night, i.e., reversal of sleep-wake pattern. He was advised that if he is having any problems and/or if his symptoms worsen to call his PCP first to see if his concerns can be addressed in a timely manner. If not or if he had been advised to go the ER for scheduling issues to discuss with his PCP whether [facility] followup is appropriate. If so, he is advised to call [facility] and/or when he is unable to touch base with his PCP and certainly during the transition prior to his flight back in [place] back in Monday if he does get unwell. He was advised to call my office regarding any questions, concerns or further clarifications regarding his discharge plans and/or prescriptions and to take his medications as prescribed. REVIEW OF SYSTEMS: The patient denied any recent headaches, dizziness, fevers, chills, nausea, vomiting, chest pain, shortness of breath, increased cough or sputum production, abdominal pain, diarrhea, constipation, pain and/or increased frequency and urination, myalgias, arthralgias, throat pain, or new skin lesions. The rest of the 14 point review of systems are otherwise unremarkable. PHYSICAL EXAMINATION: Shows the most recent vital signs of records with temperature of 98.2 degrees Fahrenheit, 83 beats per minute heart rate, 18 per minute respiratory rate, saturation at 99% on room air, blood pressure of 141/ 53. General Appearance: The patient is awake, alert, and oriented x3, not in acute distress. HEENT: Normocephalic, atraumatic. PERRLA. Extraocular muscles intact. Negative for icterus. Moist oral mucosa. Negative throat erythema. Neck is soft, supple with no cervical lymphadenopathy. No JVD. Heart: S1, S2 within normal limits. Regular rate and rhythm. No murmurs, rubs , and gallops. Chest: Clear to auscultation bilaterally. Good air entry. No wheezes, rales, and rhonchi. Abdomen is soft, nondistended, nontender. Normoactive bowel sounds x4. Extremities: No cyanosis, clubbing, or edema. Psychiatric: No active psychosis, depression, suicidal nor homicidal ideation. Skin: Warm to touch. TIME SPENT: The total time spent evaluating the patient, reviewing pertinent data and appropriate documentation is 50 minutes. [id number]/[facility] #: [id number] [facility]
== END 2017-10-13 18:00 | disposition home or self-care (01) ==
LOC: ED 16:14 → MEDTELE 20:50
PROVIDERS: ADMIT Pediatrics; ATTEND Student in an Organized Health Care Education/Training Program
DX: R07.9 Chest pain, unspecified (principal); I48.91 Unspecified atrial fibrillation; Z79.82 Long term (current) use of aspirin; I44.7 Left bundle-branch block, unspecified; F10.21 Alcohol dependence, in remission; K21.9 Gastro-esophageal reflux disease without esophagitis
CPT/HCPCS: 36415; 70450; 70496; 70498; 70551; 71045; 71275; 78452; 80053; 80061; 80320; 83605; 83735; 83880; 84100; 84443; 84484; 85025; 85060; 85610; 85730; 93005; 93017; 93306; 95819; 96365; 99284; A9270-GY; A9502; G0378; G0480; J1644; J1885; J2785; J3475; Q9967